=== PATIENT | female | born 1970 | race Caucasian/White ===

== ENCOUNTER 2021-06-23 15:51 | Outpatient (CLI) | payer OTHER | END 2021-06-23 15:52 | disposition home or self-care (01) | LOC: CSHMAMMO 15:51 | PROVIDERS: ATTEND Ophthalmology | DX: Z12.31 Encounter for screening mammogram for malignant neoplasm of breast (principal); Z91.89 Other specified personal risk factors, not elsewhere classified; Z80.3 Family history of malignant neoplasm of breast | CPT/HCPCS: 77063; 77067 ==

== ENCOUNTER 2023-06-26 15:50 | Outpatient (CLI) | payer OTHER | END 2023-06-26 15:51 | disposition home or self-care (01) | LOC: CSHMAMMO 15:50 | PROVIDERS: ATTEND Nurse Practitioner | DX: Z12.31 Encounter for screening mammogram for malignant neoplasm of breast (principal); Z91.89 Other specified personal risk factors, not elsewhere classified; Z80.3 Family history of malignant neoplasm of breast | CPT/HCPCS: 77063; 77067 ==